=== PATIENT | male | born 1975 | race Caucasian/White ===

== ENCOUNTER 2016-12-21 20:04 | Emergency (ER) | payer OTHER ==
[2016-12-21] MEDS ORDERED: NS 0.9% 1000 ML* 1,000 ML IV ONE (20:26)
[2016-12-21] MEDS ORDERED: Ondansetron INJ* 2 MG/ML VIAL IV ONE (20:26)
--- NOTE | 2016-12-21 20:54 | ED ---
Javier Tatum Alfonso, scribed for Sandro Valle MD on 12/21/16 at 2040 . Substance Abuse/Use - HPI Summary HPI Summary: This patient is a 41 year old M BIBA to [facility] with a chief complaint of ETOH abuse since 3 days ago. His last drink was at 0130 today. Pt is a recovering alcoholic who reports 65 days of sobriety. Pt rates the aching pain 7/10 in severity. Symptoms aggravated and alleviated by nothing. Pt reports chills, nausea, vomiting, blood in stool since yesterday, loss of appetite, anxiousness, and agitation. - History Of Current Complaint Chief Complaint: EDGIBleed Stated Complaint: RECTAL BLEED Time Seen by Provider: 12/21/16 20:20 Hx Obtained From: Patient Onset/Duration of Drug/ETOH Abuse: Days - 3 days ago Ingestion History: Type/Name Of Drug - ETOH, Amount Ingested Overdose Characteristics: Oral Timing Of Abuse: Recent Cessation For A Period Of - 65 days Severity Initially: Moderate Severity Currently: Moderate Character: Anxious Aggravating Factor(s): Nothing Alleviating Factor(s): Nothing Associated Signs And Symptoms: Other: - Pt reports chills, nausea, vomiting, blood in stool since yesterday, loss of appetite, anxiousness, and agitation. - Allergies/Home Medications Allergies/Adverse Reactions: Allergies Allergy/AdvReac Type Severity Reaction Status Date / Time COCKROACHES Allergy Unknown Unknown Uncoded 09/13/13 16:49 Reaction Details PMH/Surg Hx/FS Hx/Imm Hx Endocrine/Hematology History: Denies: Hx Diabetes, Hx Thyroid Disease Cardiovascular History: Denies: Hx Hypertension Respiratory History: Denies: Hx Asthma, Hx Chronic Obstructive Pulmonary Disease (COPD) GI History: Denies: Hx Ulcer History: Reports: Hx Kidney Stones Infectious Disease History: No Infectious Disease History: Denies: Hx Hepatitis, Hx Human Immunodeficiency Virus (HIV), History Other Infectious Disease, Traveled Outside the [place] in Last 30 Days - Family History Known Family History: Negative: Hypertension - Social History Alcohol Use: Weekly Alcohol Amount: binge drinking for the last two days Substance Use Type: Reports: None Substance Use Comment - Amount & Last Used: once a month Smoking Status (MU): Former Smoker Amount Used/How Often: 1/2 ppd Length of Time of Smoking/Using Tobacco: off and on 5 years Have You Smoked in the Last Year: No Review of Systems Positive: Chills Positive: Vomiting, Nausea, Other - Positive blood in stool since yesterday, loss of appetite Neurological: Other - Positive ETOH abuse, anxiousness, and agitation All Other Systems Reviewed And Are Negative: Yes Physical Exam Triage Information Reviewed: Yes Vital Signs On Initial Exam: Initial Vitals Temp Pulse Resp BP Pulse Ox 98.6 F 74 16 146/94 100 12/21/16 20:11 12/21/16 20:11 12/21/16 20:11 12/21/16 20:11 12/21/16 20:11 Vital Signs Reviewed: Yes Appearance: Positive: Well-Appearing, No Pain Distress Skin: Positive: Warm Head/Face: Positive: Normal Head/Face Inspection Eyes: Positive: CONCEPCION ENT: Positive: Hearing grossly normal Neck: Positive: Supple Respiratory/Lung Sounds: Positive: Breath Sounds Present Cardiovascular: Positive: RRR Abdomen Description: Positive: Nontender, Soft Bowel Sounds: Positive: Present Musculoskeletal: Positive: Strength/ROM Intact Neurological: Positive: Alert, Oriented to Person Place, Time Psychiatric: Positive: Affect/Mood Appropriate - [place] Coma Scale Coma Scale Total: 15 Diagnostics - Vital Signs Vital Signs Temp Pulse Resp BP Pulse Ox 12/21/16 20:11 98.6 F 74 16 146/94 100 - Laboratory Result Diagrams: 12/21/16 20:45 12/21/16 20:45 Lab Statement: Any lab studies that have been ordered have been reviewed, and results considered in the medical decision making process. Re-Evaluation - Re-Evaluation First Eval Re-Evaluation Time: 21:33 Change: Improved Comment: results d/w pt Course/Dx - Course Assessment/Plan: 41 year old M BIBA to [facility] with a chief complaint of ETOH abuse since 3 days ago. His last drink was at 0130 today. Pt is a recovering alcoholic who reports 65 days of sobriety. Pt reports chills, nausea, vomiting, blood in stool since yesterday, loss of appetite, anxiousness, and agitation. Patient will be discharged with follow up from PCP. Pt is agreeable with this plan. - Diagnoses Provider Diagnoses: Vomiting, Rectal bleeding Discharge - Discharge Plan Condition: Stable Disposition: HOME Patient Education Materials: Acute Nausea and Vomiting (ED), Rectal Bleeding ( ED) Referrals: Juan Manuel John MD [Primary Care Provider] - 3 Days The documentation as recorded by the Javier diamond Alfonso accurately reflects the service I personally performed and the decisions made by me, Sandro Valle MD.
[2016-12-21 20:58] LABS: Hematocrit 45 % (42-52); Mean Corpuscular HGB Conc 33 g/dl (31-36); Mean Corpuscular Hemoglobin 29 pg (27-31); Mean Corpuscular Volume 87 fL (80-94); Mean Platelet Volume 7 um3 (7.4-10.4); Red Blood Count 5.15 10^6/ul (4.0-5.4); Red Cell Distribution Width 13 % (10.5-15); White Blood Count 12.5 10^3/ul (3.5-10.8)
[2016-12-21 21:12] LABS: ALT 43 U/L (7-52); Albumin 4.7 g/dL (3.2-5.2); Alkaline Phosphatase 104 U/L (34-104); BUN/Creatinine Ratio 19.5 (8-20); Blood Urea Nitrogen 16 mg/dL (6-24); CO2 Carbon Dioxide 27 mmol/L (22-32); Calcium 9.8 mg/dL (8.6-10.3); Chloride 97 mmol/L (101-111); EGFR African American 133.8 (>60); EGFR Non-African American 104.1 (>60); Globulin 3.7 g/dL (2-4); Glucose 91 mg/dL (70-100); Lipase 26 U/L (11.0-82.0); Sodium 136 mmol/L (133-145); Total Protein 8.4 g/dL (6.4-8.9)
[2016-12-21 21:31] LABS: Urine Bacteria Absent (Absent); Urine Bilirubin Negative (Negative); Urine Glucose Negative (Negative); Urine Nitrite Negative (Negative)
[2016-12-21] MEDS ORDERED: LORazepam TAB(*) 1 MG PO ONE (21:55)
[2016-12-21 22:01] LABS: Anion Gap 12 mmol/L (2-11)
[2016-12-21 22:15] VITALS: BP 151/106
== END 2016-12-21 22:16 | disposition home or self-care (01) ==
LOC: ED 20:04
DX: K62.5 Hemorrhage of anus and rectum (principal); R11.2 Nausea with vomiting, unspecified
CPT/HCPCS: 36415; 80053; 81003; 81015; 83690; 85025; 85610; 99282; A9270-GY; J2405

== ENCOUNTER 2018-09-20 15:57 | Emergency (ER) | payer OTHER ==
[2018-09-20 17:06] VITALS: BP 130/83
[2018-09-20] MEDS ORDERED: Lidocaine 2% W/EPI 1:100,000* 20 ML MDV INJ ONE (17:17)
--- NOTE | 2018-09-20 17:26 | UC ---
Skin Complaint HPI - HPI Summary HPI Summary: 43 male with right buttock abscess x 2 weeks draining slightly he to augmentin for 5 days with relief NO FEVER - History of Current Complaint Chief Complaint: UCSkin Time Seen by Provider: 09/20/18 17:09 Stated Complaint: SKIN COMPLAINT Hx Obtained From: Patient Onset/Duration: Gradual Onset, Lasting Weeks Skin Exposure Onset/Duration: Weeks Ago Timing: Constant Onset Severity: Mild Current Severity: Moderate Pain Intensity: 4 Pain Scale Used: 0-10 Numeric Location: Discrete - left buttock Character: Swelling, Pain, Redness Aggravating Factor(s): Touch Alleviating Factor(s): Nothing Associated Signs & Symptoms: Positive: Tenderness - Allergy/Home Medications Allergies/Adverse Reactions: Allergies Allergy/AdvReac Type Severity Reaction Status Date / Time COCKROACHES Allergy Unknown Unknown Uncoded 09/20/18 17:06 Reaction Details Home Medications: Home Medications ALPRAZolam [Xanax Xr] 2 mg PO DAILY 09/20/18 [History Confirmed 09/20/18] Amox/Clav* 09/20/18 [History] Venlafaxine CAP (NF) [Effexor CAP (NF)] 09/20/18 [History] PMH/Surg Hx/FS Hx/Imm Hx Previously Healthy: Yes - Surgical History Surgical History: None - Family History Known Family History: Negative: Cardiac Disease, Hypertension, Diabetes - Social History Alcohol Use: None Alcohol Amount: binge drinking for the last two days Substance Use Type: Marijuana Substance Use Comment - Amount & Last Used: once a month Smoking Status (MU): Former Smoker Amount Used/How Often: 1/2 ppd Length of Time of Smoking/Using Tobacco: off and on 5 years Have You Smoked in the Last Year: No - Immunization History Most Recent Tetanus Shot: Unknown Review of Systems All Other Systems Reviewed And Are Negative: Yes Constitutional: Positive: Negative Skin: Positive: Negative Eyes: Positive: Negative ENT: Positive: Negative Respiratory: Positive: Negative Cardiovascular: Positive: Negative Gastrointestinal: Positive: Negative Genitourinary: Positive: Negative Motor: Positive: Negative Neurovascular: Positive: Negative Musculoskeletal: Positive: Negative Neurological: Positive: Negative Physical Exam Triage Information Reviewed: Yes Appearance: Well-Appearing, No Pain Distress, Well-Nourished Vital Signs: Initial Vital Signs Temp 98.2 F 09/20/18 16:56 Pulse 81 09/20/18 16:56 Resp 16 09/20/18 16:56 BP 130/83 09/20/18 16:56 Pulse Ox 100 09/20/18 16:56 Vital Signs Reviewed: Yes Eyes: Positive: Conjunctiva Clear ENT: Positive: Hearing grossly normal. Negative: Nasal congestion, Nasal drainage, Trismus, Muffled voice, Hoarse voice Neck: Positive: Supple, Nontender, No Lymphadenopathy Respiratory: Positive: Lungs clear, Normal breath sounds, No respiratory distress, No accessory muscle use Cardiovascular: Positive: RRR, No Murmur, Pulses Normal Abdomen Description: Positive: Nontender Musculoskeletal: Positive: ROM Intact, No Edema Neurological: Positive: Alert Psychological Exam: Normal Skin Exam: Other - see image Images Front/Back of Body, Lg ([place]): 1 - large abscess with significant induration and overlying cellulitis Procedures - Procedure Summary Procedure Summary: PROCEDURE EXPLAINED TIME OUT PREFORMED CULTURE OBTAINED 5 ML PUS DRAINED STERILE DRESSING PATIENT TOLERATED PROCEDURE WELL - Incision and Drainage Right Buttocks Site: INCISION AND DRAINAGE OF RIGHT BUTTOCK ABSCESS Anesthesia: Local, Lidocaine Instrument(s): Scalpel Packing: Other - NO Course/Dx - Diagnoses Provider Diagnosis: Abscess, gluteal, right Discharge - Sign-Out/Discharge Documenting (check all that apply): Patient Departure All imaging exams completed and their final reports reviewed: No Studies - Discharge Plan Condition: Stable Disposition: HOME Prescriptions: Sulfamethox/Trimethoprim DS* [Bactrim DS 800/160 TAB*] 1 tab PO BID #14 tab Patient Education Materials: Abscess (ED) Referrals: Christy España MD [Medical Doctor] - 3 Days Additional Instructions: warm soapy compresses or sitz bathes frequently until healed IF THIS STARTS GETTING WORSE PLEASE GO TO THE ER (INCREASED PAIN/SWELLING OR FEVER) IF NOT MARKEDLY IMPROVED IN 3 DAYS I SUGGEST YOU SEE A SURGEON PAM FOR PAIN - Billing Disposition and Condition Condition: STABLE Disposition: Home
[2018-09-20] MEDS ORDERED: Sulfamethox/Trimethoprim DS 800/160* TAB PO ONE (17:54)
== END 2018-09-20 18:25 | disposition home or self-care (01) ==
LOC: UCEAST 15:57
DX: L02.31 Cutaneous abscess of buttock (principal); Z87.891 Personal history of nicotine dependence; Z79.899 Other long term (current) drug therapy
CPT/HCPCS: 10060; 87070; 87077; 87186; 87205; 87640; 87641; 99212; A9270-GY; G0463

== ENCOUNTER 2019-01-26 10:25 | Emergency (ER) | payer OTHER ==
[2019-01-26] MEDS ORDERED: LORazepam INJ* 2 MG/ML 1 ML VIAL IM ONE (11:07)
[2019-01-26] MEDS ORDERED: Lorazepam PYXIS KEY PRN ×2 (11:07)
[2019-01-26] MEDS ORDERED: Lorazepam PYXIS KEY ONE (11:14)
[2019-01-26 12:18] LABS: Urine Appearance Clear; Urine Bacteria Absent (Absent); Urine Bilirubin Negative (Negative); Urine Blood Negative (Negative); Urine Color Yellow; Urine Glucose Negative (Negative); Urine Ketones 2+ (Negative); Urine Nitrite Negative (Negative); Urine Protein 1+(30 mg/dL) (Negative); Urine Red Blood Cell Trace(0-2/hpf) (Absent); Urine Squamous Epithelial Cell Present (Absent); Urine Urobilinogen Negative (Negative); Urine White Blood Cell Absent (Absent)
[2019-01-26] MEDS ORDERED: Ondansetron ODT TAB* 4 MG SL ONE (12:33)
[2019-01-26] MEDS ORDERED: diPHENhydraMINE IV* 50 MG/ML 1 ml VIAL (BENADRYL) IM ONE (12:39)
[2019-01-26 13:59] VITALS: BP 0/0
--- NOTE | 2019-01-26 14:21 | ED ---
Psychiatric Complaint - HPI Summary HPI Summary: Patient is a 44-year-old severely anxious male presenting to the ED with anxiety. He states he had some MDA (not MDMA) last night that was slipped into his drink and since then he has been concerned over the side effects. He is unsure what MDA is, but states it is an herb that was supposed to help him with his alcohol abuse. Denies alcohol use x 1 year. He states since he awoke this morning, he has been severely anxious and nauseous. Admitting to "pain all over." He states this is typical when he becomes anxious. He is also endorsing feelings of RLS. States he has to pull on his toes when his legs feel restless. Denies this at night. States only happens during the day when he is anxious. Nausea rated 9/10. Anxiety rated 10/10. - History Of Current Complaint Chief Complaint: EDSubstanceAbuse Time Seen by Provider: 01/26/19 10:44 Hx Obtained From: Patient Onset/Duration: Gradual Onset Timing: Constant Severity Initially: Severe Severity Currently: Severe Character: Anxious Aggravating Factor(s): Nothing Alleviating Factor(s): Nothing Associated Signs And Symptoms: Positive: Paranoid Behavior, Sleep Disturbance, Appetite Change, Social Withdrawal Ingestion History: Type/Name Of Drug - MDA (herb) - Risk Factor(s) Completed Suicide Risk Factors: Male, White Czech - Allergies/Home Medications Allergies/Adverse Reactions: Allergies Allergy/AdvReac Type Severity Reaction Status Date / Time COCKROACHES Allergy Unknown Unknown Uncoded 01/29/19 08:59 Reaction Details PMH/Surg Hx/FS Hx/Imm Hx Previously Healthy: Yes Endocrine/Hematology History: Denies: Hx Diabetes, Hx Thyroid Disease Cardiovascular History: Denies: Hx Hypertension Respiratory History: Denies: Hx Asthma, Hx Chronic Obstructive Pulmonary Disease (COPD) GI History: Denies: Hx Ulcer History: Reports: Hx Kidney Stones - Surgical History Surgery Procedure, Year, and Place: oral surgery - Immunization History Hx Pertussis Vaccination: No Immunizations Up to Date: Yes Infectious Disease History: No Infectious Disease History: Denies: Hx Hepatitis, Hx Human Immunodeficiency Virus (HIV), History Other Infectious Disease, Traveled Outside the [place] in Last 30 Days - Family History Known Family History: Positive: None Negative: Cardiac Disease, Hypertension, Diabetes - Social History Occupation: Unemployed Lives: Alone Alcohol Use: None Alcohol Amount: quit a year ago Hx Substance Use: Yes Substance Use Type: Reports: Marijuana Substance Use Comment - Amount & Last Used: once a month Hx Tobacco Use: Yes Smoking Status (MU): Former Smoker Amount Used/How Often: 1/2 ppd Length of Time of Smoking/Using Tobacco: off and on 5 years Have You Smoked in the Last Year: No Review of Systems Constitutional: Negative Negative: Fever, Chills, Fatigue, Skin Diaphoresis Negative: Palpitations, Chest Pain Negative: Shortness Of Breath, Cough Positive: Nausea Genitourinary: Negative Positive: no symptoms reported, see HPI Negative: Arthralgia, Myalgia Neurological: Negative Positive: Anxious All Other Systems Reviewed And Are Negative: Yes Physical Exam Triage Information Reviewed: Yes Vital Signs On Initial Exam: Initial Vitals Temp Pulse Resp BP Pulse Ox 97.7 F 75 18 165/101 100 01/26/19 10:26 01/26/19 10:26 01/26/19 10:26 01/26/19 10:26 01/26/19 10:26 Vital Signs Reviewed: Yes Appearance: Positive: Well-Appearing, Well-Nourished Skin: Positive: Warm, Skin Color Reflects Adequate Perfusion Head/Face: Positive: Normal Head/Face Inspection Eyes: Positive: EOMI, Conjunctiva Clear Neck: Positive: Supple, No Lymphadenopathy Respiratory/Lung Sounds: Positive: Clear to Auscultation, Breath Sounds Present Cardiovascular: Positive: RRR, Pulses are Symmetrical in both Upper and Lower Extremities Musculoskeletal: Positive: Strength/ROM Intact Neurological: Positive: Sensory/Motor Intact, Alert, Oriented to Person Place, Time Psychiatric: Positive: Anxious AVPU Assessment: Alert Diagnostics - Vital Signs Vital Signs Temp Pulse Resp BP Pulse Ox 01/26/19 13:59 0 F 0 0 0/0 0 01/26/19 11:21 22 01/26/19 10:26 97.7 F 75 18 165/101 100 - Laboratory Lab Results: Lab Results 01/26/19 Range/Units 12:01 Urine Color Yellow Urine Appearance Clear Urine pH 9.0 (5-9) Ur Specific [place] 1.020 (1.010-1.030) Urine Protein 1+(30 mg/dl) A (Negative) Urine Ketones 2+ A (Negative) Urine Blood Negative (Negative) Urine Nitrate Negative (Negative) Urine Bilirubin Negative (Negative) Urine Urobilinogen Negative (Negative) Ur Leukocyte Esterase Negative (Negative) Urine WBC (Auto) Absent (Absent) Urine RBC (Auto) Trace(0-2/hpf) (Absent) Ur Squamous Epith Cells Present A (Absent) Urine Bacteria Absent (Absent) Urine Glucose Negative (Negative) Urine Ascorbic Acid * A (Negative) Lab Statement: Any lab studies that have been ordered have been reviewed, and results considered in the medical decision making process. Re-Evaluation - Re-Evaluation First Eval Change: Unchanged - continues to feel anxious - and nauseated Second Eval Change: Improved - nausea improved after given zofran - continues to feel anxious Third Eval Change: Improved - states anxiety improved somewhat and prefers to go home Course/Dx - Course Course Of Treatment: During his course of treatment, the patient is evaluated for severe anxiety and nausea. He is also endorsing pain all over. Patient is given 2 mg Ativan on arrival. He does take Xanax daily, however this is extended release. He states he has no medications left over for his breakthrough anxiety medication and he typically needs. He states he has pain all over and is nauseous due to his severe anxiety. He denies any SI or HI. Denies any self-harm. Endorses restless leg syndrome at this time and is actively pulling on his toes. He states this helps him feel better. After 2mg ativan, pt continues to feel anxious and nauseous. He is then given zofran. Nausea improved. Discussed obtaining mental health evaluation, however pt states his anxiety would improve more at home. Continues to deny and HI/SI. He is given ativan for breakthrough anxiety sxs. Will f/u with PCP. - Differential Dx/Clinical Impression Differential Diagnosis/HQI/PQRI: Positive: Anxiety, Other - bipolar, medication reaction, nausea, social anxiety, CHANTEL Provider Diagnosis: Anxiety Discharge ED - Sign-Out/Discharge Documenting (check all that apply): Patient Departure Patient Received Moderate/Deep Sedation with Procedure: No - Discharge Plan Condition: Stable Disposition: HOME Patient Education Materials: Restless Legs Syndrome (ED), Anxiety (ED) Referrals: Inderjit Joshua DO [Primary Care Provider] - Additional Instructions: Please follow up with PCP for further evaluation of anxiety-like symptoms - Billing Disposition and Condition Condition: STABLE Disposition: Home - Attestation Statements Provider Attestation: I was available for consult. This patient was seen by the [facility]. The patient was not presented to, seen by, or examined by me. Al Arrington MD
== END 2019-01-26 13:59 | disposition home or self-care (01) ==
LOC: ED 10:25
DX: F41.9 Anxiety disorder, unspecified (principal); G25.81 Restless legs syndrome; Z87.891 Personal history of nicotine dependence
CPT/HCPCS: 81003; 81015; 96372; 99282; A9270-GY; J1200; J2060

== ENCOUNTER 2019-01-28 09:24 | Emergency (ER) | payer OTHER ==
[2019-01-28 10:08] LABS: ABS Basophils 0.1 10^3/ul (0-0.2); ABS Lymphocytes 1.3 10^3/ul (1.0-4.8); ABS Monocytes 0.8 10^3/ul (0-0.8); ABS Neutrophils 9.8 10^3/ul (1.5-7.7); Eosinophil % 0.2 %; Hematocrit 41 % (42-52); Hemoglobin 14.2 g/dL (14.0-18.0); Lymphocyte % 10.8 %; Mean Corpuscular HGB Conc 34 g/dL (31-36); Mean Corpuscular Hemoglobin 29 pg (27-31); Mean Corpuscular Volume 85 fL (80-94); Mean Platelet Volume 6.6 fL (7.4-10.4); Platelet Count 437 10^3/uL (150-450); Red Cell Distribution Width 14 % (10-15)
[2019-01-28] MEDS ORDERED: LORazepam TAB(*) 1 MG PO ONE (10:16)
--- NOTE | 2019-01-28 10:17 | ED ---
Complex/Multi-Sys Presentation - HPI Summary HPI Summary: This patient is a 44 year old M [facility] with a chief complaint of extreme nausea, and anxiousness since this morning. Pt has been struggling with alcoholism for 10 years, and he quit 1 year ago. 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 Then pt split up with his this past spring. Pt has also been working 70 hours a week since left. Pt turned to yoga and working out to manage his stress. On 01/26/19 he invited two guys over to watch movies, one of the guys dosed pt with MDA. Pt reports getting hot, panicky, tossed and turned all night, vomiting, diaphoresis and was driven to ED by his roommate on 01/27/19. He felt better after a while and was discharged. Then the pt woke up this morning and felt extreme nausea, anxiety. Pt had CP when he first arriving to ED. Patient also reports diarrhea. Symptoms alleviated by deep breaths. Pt is on antidepressants. Patient denies SOB, current diaphoresis, and swelling in calves. Pt has no Hx of blood clots. Pt does not smoke, and recreationally uses weed. Medications reviewed. Allergies reviewed. - History Of Current Complaint Chief Complaint: EDNauseaVomitDiarrh Time Seen by Provider: 01/28/19 09:59 Hx Obtained From: Patient Onset/Duration: Sudden Onset, Lasting Hours, Still Present Timing: Constant Severity Currently: None Aggravating Factor(s): MDA Alleviating Factor(s): Nothing Associated Signs And Symptoms: Positive: Chest Pain, Nausea, Vomiting, Diarrhea , Other - Anxiety. Negative: SOB, Edema, Diaphoresis - Allergies/Home Medications Allergies/Adverse Reactions: Allergies Allergy/AdvReac Type Severity Reaction Status Date / Time COCKROACHES Allergy Unknown Unknown Uncoded 01/13/19 09:50 Reaction Details Home Medications: Home Medications Naltrexone TAB* 50 mg PO DAILY 01/28/19 [History Confirmed 01/28/19] Ropinirole TAB* [Requip TAB*] 0.25 mg PO BEDTIME 01/28/19 [History Confirmed 03/08] busPIRone TAB* [Buspar TAB*] 5 mg PO TID 01/28/19 [History Confirmed 01/28/19] PMH/Surg Hx/FS Hx/Imm Hx Endocrine/Hematology History: Denies: Hx Diabetes, Hx Thyroid Disease Cardiovascular History: Denies: Hx Hypertension Respiratory History: Denies: Hx Asthma, Hx Chronic Obstructive Pulmonary Disease (COPD) GI History: Denies: Hx Ulcer History: Reports: Hx Kidney Stones - Surgical History Surgery Procedure, Year, and Place: oral surgery Infectious Disease History: No Infectious Disease History: Denies: Hx Hepatitis, Hx Human Immunodeficiency Virus (HIV), History Other Infectious Disease, Traveled Outside the [place] in Last 30 Days - Family History Known Family History: Negative: Cardiac Disease, Hypertension, Diabetes - Social History Occupation: Employed Full-time Alcohol Use: None Alcohol Amount: quit a year ago Substance Use Type: Reports: Marijuana Substance Use Comment - Amount & Last Used: once a month Hx Tobacco Use: Yes Smoking Status (MU): Former Smoker Amount Used/How Often: 1/2 ppd Length of Time of Smoking/Using Tobacco: off and on 5 years Have You Smoked in the Last Year: No Review of Systems Negative: Skin Diaphoresis Positive: Chest Pain Negative: Shortness Of Breath Positive: Vomiting, Nausea Negative: Edema Positive: Anxious All Other Systems Reviewed And Are Negative: Yes Physical Exam - Summary Physical Exam Summary: Constitutional: Well-developed, Well-nourished, Alert. (-) Distressed Skin: Warm, Dry HENT: Normocephalic; Atraumatic Eyes: Conjunctiva normal Neck: Musculoskeletal ROM normal neck. (-) JVD, (-) Stridor, (-) Tracheal deviation Cardio: Rhythm regular, rate normal, Heart sounds normal; Intact distal pulses; The pedal pulses are 2+ and symmetric. Radial pulses are 2+ and symmetric. (-) Murmur Pulmonary/Chest wall: Effort normal. (-) Respiratory distress, (-) Wheezes, (-) Rales Abd: Soft, (-) tenderness, (-) Distension, (-) Guarding, (-) Rebound Musculoskeletal: (-) Edema Lymph: (-) Cervical adenopathy Neuro: Alert, Oriented x3 Psych: Mood and affect Normal Triage Information Reviewed: Yes Vital Signs On Initial Exam: Initial Vitals Temp Pulse Resp BP Pulse Ox 98.5 F 72 22 147/90 100 01/28/19 09:34 01/28/19 09:34 01/28/19 09:34 01/28/19 09:34 01/28/19 09:34 Vital Signs Reviewed: Yes Diagnostics - Vital Signs Vital Signs Temp Pulse Resp BP Pulse Ox 01/28/19 09:34 98.5 F 72 22 147/90 100 - Laboratory Lab Results: Lab Results 01/28/19 Range/Units 09:57 WBC 12.0 H (3.5-10.8) 10^3/uL RBC 4.90 (4.18-5.48) 10^6 /uL Hgb 14.2 (14.0-18.0) g/dL Hct 41 L (42-52) % MCV 85 (80-94) fL MCH 29 (27-31) pg MCHC 34 (31-36) g/dL RDW 14 (10-15) % Plt Count 437 (150-450) 10^3/uL MPV 6.6 L (7.4-10.4) fL Neut % (Auto) 81.9 % Lymph % (Auto) 10.8 % [place] % (Auto) 6.5 % Eos % (Auto) 0.2 % Baso % (Auto) 0.6 % Absolute Neuts (auto) 9.8 H (1.5-7.7) 10^3/ul Absolute Lymphs (auto) 1.3 (1.0-4.8) 10^3/ul Absolute Monos (auto) 0.8 (0-0.8) 10^3/ul Absolute Eos (auto) 0.0 (0-0.6) 10^3/ul Absolute Basos (auto) 0.1 (0-0.2) 10^3/ul Absolute Nucleated RBC 0.0 10^3/ul Nucleated RBC % 0.0 Result Diagrams: 01/28/19 09:57 01/28/19 09:57 Lab Statement: Any lab studies that have been ordered have been reviewed, and results considered in the medical decision making process. - EKG 09 Summary of EKG Findings: An EKG at 09 reveals baseline artifact; no obvious STEMI Re-Evaluation - Re-Evaluation First Eval Re-Evaluation Time: 11:51 Comment: Pt says he is prescribed Xanax bars, but he ran out, and would like ED MD to fill them. Complex Multi-Symp Course/Dx Course Of Treatment: Patient is here with nausea and feelings of anxiety after accidentally ingesting MDA a couple of days ago. Upon arrival here, patient is overall well-appearing with no abdominal tenderness. Patient had motor performed which was grossly unremarkable. Patient was given 1 mg of Ativan by mouth with no change in symptoms. Patient appears anxious, bordering on manic, and was requesting extra Xanax for home. Patient was encouraged to call his psychiatrist to have that filled but did not want to "waste his day "calling his psychiatrist. Patient was encouraged to continue his physical exercise, meditation, and to follow-up with psychiatrist. Patient had no emergent condition necessitating admission. - Diagnoses Provider Diagnoses: Anxiety, Nausea Discharge ED - Sign-Out/Discharge Documenting (check all that apply): Patient Departure - Discharge Patient Received Moderate/Deep Sedation with Procedure: No - Discharge Plan Condition: Stable Disposition: HOME Prescriptions: Melatonin/Pyridoxine HCl (B6) [Melatonin 5 mg Tablet] 1 each PO QPM 30 Days #30 tablet Ondansetron TAB* [Zofran 4 MG Tab*] 4 mg PO Q8H PRN #12 tab PRN Reason: Vomiting Patient Education Materials: Acute Nausea and Vomiting (ED), Anxiety (ED) Referrals: Inderjit Joshua DO [Primary Care Provider] - As Soon As Possible Additional Instructions: PLEASE RETURN TO EMERGENCY DEPARTMENT FOR ANY NEW OR WORSENING SYMPTOMS. Please follow up with your primary care physician. Please make all follow-ups as soon as possible unless I advise you otherwise - Billing Disposition and Condition Condition: STABLE Disposition: Home - Attestation Statements Document Initiated by Scribe: Yes Documenting Scribe: Anita Aelgre Provider For Whom Roshni is Documenting (Include Credential): Al Arrington Scribe Attestation: Anita Tatum, scribed for Al Arrington on 01/28/19 at 1300. Scribe Documentation Reviewed: Yes Provider Attestation: The documentation as recorded by the Anita diamond accurately reflects the service I personally performed and the decisions made by Al hammond Status of Scribe Document: Viewed
[2019-01-28 10:27] LABS: Albumin 4.7 g/dL (3.2-5.2); Albumin/Globulin Ratio 1.7 (1-3); BUN/Creatinine Ratio 11.5 (8-20); Calcium 10.3 mg/dL (8.6-10.3); EGFR African American 115.9 (>60); EGFR Non-African American 95.8 (>60); Globulin 2.8 g/dL (2-4); Potassium 4.3 mmol/L (3.5-5.0); Total Bilirubin 0.6 mg/dL (0.2-1.0); Total Protein 7.5 g/dL (6.4-8.9)
[2019-01-28 10:37] LABS: INR 1.07 (0.82-1.09)
[2019-01-28 11:36] LABS: TSH (Thyroid Stimulating Horm) 0.54 mcIU/mL (0.34-5.60)
[2019-01-28 12:14] VITALS: BP 130/81
== END 2019-01-28 12:06 | disposition home or self-care (01) ==
LOC: ED 09:24
DX: F41.9 Anxiety disorder, unspecified (principal); R11.0 Nausea; Z87.891 Personal history of nicotine dependence; Z79.899 Other long term (current) drug therapy
CPT/HCPCS: 36415; 80053; 82550; 84443; 84484; 85025; 85610; 93005; 99283; A9270-GY

== ENCOUNTER 2019-01-29 08:31 | Emergency (ER) | payer OTHER ==
[2019-01-29] MEDS ORDERED: Ketorolac INJ* 30 MG/ML 1 ML VIAL IM ONE (09:49)
--- NOTE | 2019-01-29 09:50 | UC ---
Back Pain HPI - HPI Summary HPI Summary: 44 yo male presents here with multiple complaints - bilateral flank pain x 4 days (currently at 02/27) ...he is concerned he has a stone - vominting -anxiety -worsening by the fact he is on his last dose of effexor and his pyschiatrist has not called him back no fever no testicular pain just started yoga - History of Current Complaint Chief Complaint: [facility] Stated Complaint: LOWER BACK PAIN VOMITING Time Seen by Provider: 01/29/19 09:14 Hx Obtained From: Patient Onset/Duration: Gradual Onset, Lasting Days Timing: Constant Severity Initially: Mild Severity Currently: Severe Pain Intensity: 9 Pain Scale Used: 0-10 Numeric Back Pain: Is Diffuse Character: Throbbing, Spasmodic Aggravating Factor(s): Movement Alleviating Factor(s): Nothing Associated Signs And Symptoms: Positive: Negative Full Body (No Head): 1 - pain here radiating to front - Allergies/Home Medications Allergies/Adverse Reactions: Allergies Allergy/AdvReac Type Severity Reaction Status Date / Time COCKROACHES Allergy Unknown Unknown Uncoded 01/29/19 08:59 Reaction Details Home Medications: Home Medications ALPRAZolam [Alprazolam] 2 mg PO DAILY PRN 01/29/19 [History Confirmed 01/29/19] Cyanocobalamin TAB* [Vitamin B12 TAB*] 500 mcg PO DAILY 01/29/19 [History Confirmed 01/29/19] PMH/Surg Hx/FS Hx/Imm Hx Previously Healthy: Yes GI/ History: Kidney Stones Psychological History: Anxiety - Surgical History Surgical History: Yes Surgery Procedure, Year, and Place: oral surgery - Family History Known Family History: Negative: Cardiac Disease, Hypertension, Diabetes - Social History Alcohol Use: None Alcohol Amount: quit a year ago Substance Use Type: Marijuana Substance Use Comment - Amount & Last Used: once a month Smoking Status (MU): Former Smoker Amount Used/How Often: 1/2 ppd Length of Time of Smoking/Using Tobacco: off and on 5 years Have You Smoked in the Last Year: No - Immunization History Most Recent Tetanus Shot: Unknown Review of Systems All Other Systems Reviewed And Are Negative: Yes Constitutional: Positive: Negative Skin: Positive: Negative Eyes: Positive: Negative ENT: Positive: Negative Respiratory: Positive: Negative Cardiovascular: Positive: Negative Gastrointestinal: Positive: Nausea Genitourinary: Positive: Negative Musculoskeletal: Positive: Myalgia - back Neurological: Positive: Negative Psychological: Positive: Negative Physical Exam Triage Information Reviewed: Yes Appearance: Well-Appearing, No Pain Distress, Well-Nourished Vital Signs: Initial Vital Signs Temp 98 F 01/29/19 08:35 Pulse 70 01/29/19 08:35 Resp 16 01/29/19 08:35 BP 149/98 01/29/19 08:35 Pulse Ox 100 01/29/19 08:35 Vital Signs Reviewed: Yes Eyes: Positive: Conjunctiva Clear ENT: Positive: Hearing grossly normal. Negative: Nasal congestion, Nasal drainage, Trismus, Muffled voice, Hoarse voice Neck: Positive: Supple, Nontender, No Lymphadenopathy Respiratory: Positive: Lungs clear, Normal breath sounds, No respiratory distress, No accessory muscle use Cardiovascular: Positive: RRR Abdomen Description: Positive: Nontender, No Organomegaly, Soft, CVA Tenderness (R) - mild, CVA Tenderness (L) - mild Bowel Sounds: Positive: Present Musculoskeletal: Positive: ROM Intact, No Edema Neurological: Positive: Alert Psychological Exam: Normal Skin Exam: Normal - Additional Comments no midline lumbar tenderness left paraspinous muscle tenderness -SLR dtrs symmetrical Diagnostics - Laboratory Lab Results: UA ++ protein trc RBC - Radiology No standard instances Radiology Interpretation Completed By: Radiologist Summary of Radiographic Findings: U/S kidneys: 1. NO HYDRONEPHROSIS OR NEPHROLITHIASIS. 2. THERE IS A 2.6 CM CYST OF THE UPPER POLE OF THE RIGHT KIDNEY THAT HAS DEVELOPED PERIPHERAL COARSE ECHOGENICITY SUGGESTIVE OF PERIPHERAL CALCIFICATION VERSUS MILK OF CALCIUM. THIS IS A LOW SUSPICION CYST. 3. ENLARGED PROSTATE Back Pain Course/Dx - Differential Dx/Diagnosis Provider Diagnosis: Back pain, Anxiety, Benign cyst of right kidney Discharge ED - Sign-Out/Discharge Documenting (check all that apply): Patient Departure All imaging exams completed and their final reports reviewed: Yes - Discharge Plan Condition: Stable Disposition: HOME Prescriptions: hydrOXYzine HCL TAB* [Atarax 25 MG TAB*] 25 - 50 mg PO BEDTIME PRN #14 tab PRN Reason: Insomnia Naproxen [Naproxen 500 mg tab] 500 mg PO BID PRN #20 tablet PRN Reason: Pain Promethazine TAB* [Phenergan TAB*] 25 mg PO Q6H PRN #12 tab PRN Reason: Nausea Venlafaxine CAP (NF) [Effexor CAP (NF)] 75 mg PO DAILY #21 tab Patient Education Materials: Back Pain (ED), Anxiety (ED) Forms: *Work Release Referrals: Inderjit Joshua DO [Primary Care Provider] - 1 Week Additional Instructions: phenergan can cause drowsiness ultrasound results 1. NO HYDRONEPHROSIS OR NEPHROLITHIASIS. 2. THERE IS A 2.6 CM CYST OF THE UPPER POLE OF THE RIGHT KIDNEY THAT HAS DEVELOPED PERIPHERAL COARSE ECHOGENICITY SUGGESTIVE OF PERIPHERAL CALCIFICATION VERSUS MILK OF CALCIUM. THIS IS A LOW SUSPICION CYST. 3. ENLARGED PROSTATE - Billing Disposition and Condition Condition: STABLE Disposition: Home
[2019-01-29 11:53] VITALS: BP 121/69
== END 2019-01-29 12:50 | disposition home or self-care (01) ==
LOC: UCEAST 08:31
DX: M54.5 Low back pain (principal); F41.9 Anxiety disorder, unspecified; N28.1 Cyst of kidney, acquired
CPT/HCPCS: 76775; 81003; 99212; G0463; J1885